=== PATIENT | female | born 1995 | race Caucasian/White ===

== ENCOUNTER 2023-09-12 10:33 | Emergency (ER) | payer OTHER ==
[~2023-09-12] VITALS: Ht 172.7 cm; Wt 63.6 kg
[2023-09-12 10:35] VITALS: TEMP 98.3
[2023-09-12] MEDS ORDERED: Ketorolac 30 MG/ML VIAL IM ONE (11:00)
[2023-09-12] MEDS ORDERED: diphenhydrAMINE 25 MG CAP PO ONE (11:00)
[2023-09-12 12:50] VITALS: BP 115/78; PULSE 85
== END 2023-09-12 12:50 | disposition home or self-care (01) ==
LOC: COL.ER 10:33
DX: R51.9 Headache, unspecified (principal); T48.5X5A Adverse effect of other anti-common-cold drugs, initial encounter; Z87.891 Personal history of nicotine dependence
CPT/HCPCS: J1885